=== PATIENT | female | born 1990 | race Caucasian/White ===

== ENCOUNTER → 2016-08-18 | Outpatient (CLI) | payer OTHER ==
--- NOTE | 2016-08-18 19:34 | CONS ---
DATE OF CONSULTATION: 08/18/2016 CONSULTATION/NEW PATIENT EVALUATION 25-year-old lady who has been evaluated in the sleep center for possible obstructive sleep apnea-hypopnea syndrome. Patient also possibly had hypnagogical hallucinations and seeing dreams during the naps. HISTORY OF PRESENT ILLNESS/SLEEP-WAKE EVALUATION: SLEEP SCHEDULE: Patient works on afternoon shift. Subsequently, she goes to bed later from around midnight until 2:00 a.m. on working days and she gets up around 7:00 a.m. Basically 7 days a week. FALLING ASLEEP: Sometimes she has problem with falling asleep. She has a TV set in bedroom. DURING SLEEP: Sleeps on the side position. She snores and according to family has episodes of stopped breathing during sleep. She wakes up from sleep up to 3 times with nocturia, episodes of choking, grinding teeth, dry mouth, panic attacks, heartburn, gasping for air, restless leg. There is a positive history of sleeptalking and sweating. DURING THE DAY/WAKE STATE: In the morning then patient may wake up tired, has difficulties to pay attention, falling asleep during the day, worry about her sleep, has problems with memory, concentration, irritability, depression, anxiety and ( ). Sometimes she also takes naps around noontime and as I already mentioned above, she may see dreams during the naps. No history of cataplexy. PAST MEDICAL HISTORY: Positive for episodes of headaches. PAST SURGICAL HISTORY: None. MEDICATIONS: None. SOCIAL HISTORY: Positive for smoking around half pack a day. Alcohol consumption occasional. FAMILY HISTORY: Positive for hypertension, heart problems, hyperlipidemia, epilepsy, stroke, arthritis, bronchitis, sleep apnea, snoring, headaches, acid reflux, liver problems, mental illness. REVIEW OF SYSTEMS: Multiple awakenings from sleep, feeling some tiredness and sleepiness during the day. No fevers. No double vision. No recent chest pain. No shortness of breath. No abdominal pain. No bleeding episodes. No blood in urine. No seizure episodes. PHYSICAL EXAMINATION: GENERAL: A 25-year-old lady without distress. VITAL SIGNS: BP 124/75, HR 90, RR 16. Height 5 feet 1/2 inch. Weight 167 pounds. BMI 31. Neck 17-3/4 inches in circumference. Temperature 98.1. Oxygen saturation at room air 98%. HEENT: OANH, PAMELAMI. Evaluation of oropharynx showed low position of soft palate, slight restriction of nasal breathing. NECK: Supple. No JVD. Thyroid is not palpable. LUNGS: Clear to percussion and to auscultation. Good air exchange. No wheezing or rhonchi. HEART: S1, S2 regular. No murmurs, gallops or rubs. ABDOMEN: Slightly obese. Soft and nontender. Bowel sounds are present. No organomegaly appreciated. EXTREMITIES: No clubbing or cyanosis. RETURNED MATERIALS INSPECTOR: Awake, alert, and oriented x3. Cranial nerves 2 to 7 intact. There is no fasciculation or atrophy noted. No focal deficits observed. IMPRESSION: 1. Snoring, witnessed episodes of stopped breathing during this sleep, low position of soft palate, excessive sleepiness and obstructive sleep apnea-hypopnea syndrome. 2. Mild obesity, body mass index of 31. 3. Episodes of headaches. 4. History of episodes of vivid dreams, possible hypnagogic hallucinations. PLAN: 1. Polysomnography for evaluation of patient's breathing during sleep. 2. CPAP/BiPAP titration if sleep study confirms obstructive sleep apnea-hypopnea syndrome. 3. Preferable position during sleep on the side. 4. No driving if patient feels any sleepiness. Patient is aware of civil and criminal liability for unsafe driving. 5. I will see patient for follow-up visit to explain results of the testing and following plan. Thank you very much for referring this patient for consultation. Sincerely, Krzysztof Jay MD, PhD, FAASM. Diplomat of [employer], Sleep Medicine Board by [employer] Supervisory It Specialist of [facility] [place]
== END | disposition home or self-care (01) ==
LOC: SLEEP 14:53
PROVIDERS: ATTEND Internal Medicine
DX: G47.33 Obstructive sleep apnea (adult) (pediatric) (principal); E66.9 Obesity, unspecified; Z68.31 Body mass index [BMI] 31.0-31.9, adult; R51 Headache; F17.200 Nicotine dependence, unspecified, uncomplicated
CPT/HCPCS: 99211

== ENCOUNTER 2021-09-12 18:34 | Outpatient (CLI) | payer OTHER ==
[2021-09-12] MEDS ORDERED: ONDANSETRON 4 MG/2 ML VIAL IVP STA (19:28)
[2021-09-12] MEDS ORDERED: LACTATED RINGERS 1,000 ML IV SCH (19:30)
[2021-09-12 21:10] LABS: Appearance,Urine Clear (Clear); Bilirubin,Urine Negative (Negative); Blood,Urine Negative (Negative); Color,Urine Yellow; Glucose,Urine (UA) Negative (Negative); Ketones,Urine Negative (Negative); Leukocyte Esterase,Urine Negative (Negative); Nitrite,Urine Negative (Negative); PH, Urine 6.5 (5.0-8.0); Protein,Urine Negative (Negative); Specific Gravity,Urine 1.008 (1.001-1.035); Urobilinogen,Urine <2.0 mg/dL (<2.0)
[2021-09-12 21:41] VITALS: BP 125/76; PULSE 95; RESP 17; TEMP 96.8
--- NOTE | 2021-10-19 09:00 | P.MSEPDOC ---
Presenting Problems - Arrival Data Date of Arrival on Unit: 09/12/21 Time of Arrival on Unit: 18:34 Mode of Transport: Wheelchair - Complaint OB-Reason for Admission/Chief Complaint: Acute Nausea/Vomiting, Other Comment: Acute nausea/vomiting, diarrhea, cramping Medical History - Information : 2 Para: 1 Term: 1 : 0 Abortions: Spontaneous or Elective: 0 Number of Living Children: 1 - Gestational Age Gestational Age by CHRIS (wks/days): 29 Weeks and 1 Days Review of Systems - Review of Systems Constitutional: No problems Breast: No problems ENT: No problems Cardiovascular: No problems Respiratory: No problems Gastrointestinal: Diarrhea Genitourinary: No problems Musculoskeletal: No problems Neurological: No problems Skin: No problems Vital Signs - Temperature Temperature: 96.8 F Temperature Source: Temporal Artery Scan - Pulse Pulse Oximetery Pulse Rate: 95 Pulse Assessment Method: Pulse Oximetry - Respirations Respiratory Rate: 17 Oxygen Delivery Method: Room Air O2 Sat by Pulse Oximetry: 97 - Blood Pressure Right Arm Blood Pressure: 125/76 Blood Pressure Mean: 92 Blood Pressure Source: Automatic Cuff Medical Screen Scoring - Uterine Contractions Resting: Soft to palpation - Assessment - Baby A Baseline FHR: 145 Heart Rate - NICHD Category: Category I (Normal) NST: Reactive Physician Notification - Physician Notified Physician Notified Date: 09/12/21 Physician Notified Time: 19:24 Physician: Trinidad Smith New Order Received: Yes - Notification Comment Comment: Spoke with Dr. Smith regarding DOM patient c/o nausea, vomiting and. diarrhea since yesterday afternoon as well as cramping. Reported that patient has consumed chicken and culp today, has had intercourse in the last 24 hours, and had one episode of diarrhea since being in triage. Reactive NST and maternal vital signs reported. New orders include collecting urinalysis, 1L of LR and 4 mg zofran if needed and reporting UA results once obtained. Spoke with Dr. Smith regarding patient's urinalysis results, FHT, maternal. vital signs. Patient states she is feeling better after fluid bolus and zofran. Orders to send patient home with discharge instructions to follow up with patient's physician. Maternal Triage Index - Maternal Triage Index Presenting for scheduled procedure w/no complaint: No - Stat/Priority 1 Stat Priority 1: No - Urgent/Priority 2 Urgent Priority 2: No - Prompt/Priority 3 Prompt Priority 3: No - Non-Urgent/Priority 4 Non-Urgent Priority 4: Yes Criteria Met for Priority 4: Pt presents to triage for cramping, has been vomiting and having diarrhea. since yesterday, vomited x 2 today, diarrhea x 2 today Disposition - Disposition OB Disposition: Discharge to home, Written follow up instructions reviewed Discharge Date: 09/12/21 Discharge Time: 21:20 I agree with the RN Medical Screening Exam: Yes Case reviewed; plan agreed upon as documented in EMR&OBIX.: Yes Diagnosis: nausea and vomitting in
== END 2021-09-12 21:20 | disposition home or self-care (01) ==
LOC: FBPOP 18:34
PROVIDERS: ATTEND Obstetrics & Gynecology
DX: O21.2 Late vomiting of pregnancy (principal); Z3A.29 29 weeks gestation of pregnancy
CPT/HCPCS: 59025; 96361; 96374; 81003; G0463; J2405; 99214